=== PATIENT | male | born 1945 | race Caucasian/White ===

== ENCOUNTER → 2019-03-27 15:26 | Outpatient (CLI) | payer MEDICARE, SELFPAY ==
[2019-03-27 14:44] VITALS: BMI 22.6
[2019-03-27 16:28] LABS: BUN 25 mg/dL (7-18); EST Glomerular Filtration Rate 63 mL/min (>60); Est Glom Filt Rate - Afr Amer 76 mL/min (>60)
[2019-03-27 16:30] LABS: Hemoglobin A1c 7.1 % (4.2-6.3)
== END ==
PROVIDERS: Family Provider Family Medicine; PCP Family Medicine; Referring Provider Surgery; Visit Provider Surgery
DX: E11.9 Type 2 diabetes mellitus without complications (principal)
CPT/HCPCS: 36415; 82565; 83036; 84520

== ENCOUNTER → 2019-03-29 15:45 | Outpatient (CLI) | payer MEDICARE, SELFPAY ==
[2019-03-27 14:44] VITALS: BMI 22.6
--- NOTE | 2019-03-29 15:48 | CT_ITS ---
STUDY: CTA NECK WITH CONTRAST REASON FOR EXAM: Male, 73 years old. Carotid stenosis RADIATION DOSAGE (If Supplied By Facility): CTDIvol = ( 21.77 ) mGy, DLP = ( 622.78 ) mGycm TECHNIQUE: CT angiography with multi-detector data acquisition was performed from the aortic arch to the skull base following intravenous administration of IV Isovue 370 100. MIP images were reconstructed from the axial data set. Post-processing of the angiographic images was performed, with multiplanar reformation and 3D reconstruction. Individualized dose optimization techniques were used for this CT. COMPARISON: None. FINDINGS: AORTIC ARCH: Normal visualized aortic arch. Normal origins of the brachiocephalic, left common carotid, and left subclavian arteries. RIGHT CAROTID ARTERIES: Mild calcific plaquing of the distal right common carotid. Moderate calcific plaquing of the right carotid bulb.. Moderate to severe soft and calcific plaquing in the origin of the right internal carotid (ICA) artery demonstrating hemodynamically significant stenosis. Moderate soft plaque in the visualized cervical portion of the right internal carotid artery. Normal origin of the right external carotid artery (ECA). LEFT CAROTID ARTERIES: There is mild multifocal calcific plaquing of the common carotid. There is moderate calcific and soft plaque of the carotid bulb.. Mild calcific and soft plaque in the origin of the left internal carotid (ICA) artery without a hemodynamically significant stenosis. Normal visualized cervical portion of the left internal carotid artery. Normal origin of the left external carotid artery (ECA). VERTEBRAL ARTERIES: The left vertebral is dominant and normal caliber. The right vertebral is smaller and terminates in the PICA is normal developmental variant CT/CTA Neck W/WO Contrast IMPRESSION: Moderate atherosclerotic disease more severe on the right with estimated greater than 70% stenosis of the right internal carotid Catheter angiography would be helpful for further evaluation and possible therapeutic purposes if clinically warranted Electronically Signed: Hermes Castro MD at 19:54 EST , Service support ,
== END ==
PROVIDERS: Family Provider Family Medicine; PCP Family Medicine; Referring Provider Surgery; Visit Provider Surgery
DX: I65.23 Occlusion and stenosis of bilateral carotid arteries (principal)
CPT/HCPCS: 70498; Q9967

== ENCOUNTER → 2019-06-03 08:49 | Outpatient (CLI) | payer MEDICARE, SELFPAY ==
[2019-05-21 08:44] VITALS: BMI 22.6
[2019-06-03 09:46] VITALS: PULSE 100; PULSE 111; PULSE 119; PULSE 120; PULSE 121; PULSE 122; PULSE 124; O2SAT 87; O2SAT 90; O2SAT 93; O2SAT 95; O2SAT 96; O2SAT 97; O2SAT 98
--- NOTE | 2019-06-03 09:49 | CPS ---
Patient stated that he does have a concentrator at home but has not worn oxygen in over a year. Patient moved from [place] to [place], during that time patient gave back all oxygen tanks. Patient states he only gets short of breath in the winter and that his nasal polyps cause hjm to mouth breath and that is why his oxygen drops. Patient was also upset that he has to come here from [place] for testing, if he would have known all this he would have never came to [facility]. Patient sent home without face to face with Johana because he was seen in office within last 30 days. Patient sent home without oxygen due to wanting to know cost of everything before set up because he is on social security income. Johana holland and Kim at [facility] sending orders to [facility] [place].
--- NOTE | 2019-06-04 08:05 | PCM.PSN.6M ---
PSN 6 Minute Walk Test - 6 Minute Walk Test 6 Minute Walk Test: 6 Minute Walk Test PSN:6-Minute Walk Test Start: 06/03/19 09:46 Freq: Status: Active Protocol: RESP.6MINW Document 06/03/19 09:46 SMB (Rec: 06/03/19 09:55 SMB [id number]) 6 Minute Walk Test Date Performed 06/03/19 Time Performed 08:51 Height 5 ft 11 in Weight: 190 lb Weight in Pounds 190.[address]: Good Doss Assistive device used: None Pre-test Oxygen Delivery Method Room Air Pulse Ox (%) 96 Pulse Rate (60-100 beats/min) 111 H 1st minute Oxygen Delivery Method Room Air Pulse Ox (%) 96 Pulse Rate (60-100 beats/min) 119 H 2nd minute Oxygen Delivery Method Room Air Pulse Ox (%) 93 Pulse Rate (60-100 beats/min) 124 H 3rd minute Oxygen Delivery Method Room Air Pulse Ox (%) 90 Pulse Rate (60-100 beats/min) 122 H 4th minute Oxygen Flow Rate (L/min) (L/min) 2 Oxygen Delivery Method Nasal Cannula Pulse Ox (%) 87 Pulse Rate (60-100 beats/min) 121 H 5th minute Oxygen Flow Rate (L/min) (L/min) 2 Oxygen Delivery Method Nasal Cannula Pulse Ox (%) 97 Pulse Rate (60-100 beats/min) 120 H 6th minute Oxygen Flow Rate (L/min) (L/min) 2 Oxygen Delivery Method Nasal Cannula Pulse Ox (%) 95 Pulse Rate (60-100 beats/min) 100 Post-test Oxygen Flow Rate (L/min) (L/min) 2 Oxygen Delivery Method Nasal Cannula Pulse Ox (%) 98 Pulse Rate (60-100 beats/min) 119 H Dyspnea Nannette Scale (0-10) 1 Exertion Nannette Scale (6-20) 14 Full Laps Walked 12 Partial Lap, Number of Tiles Walked 13 Total Distance Walked (ft) 721 06/03/19 09:49 Cardiopulmonary Services by Areli Em Patient stated that he does have a concentrator at home but has not worn oxygen in over a year. Patient moved from [place] to [place], during that time patient gave back all oxygen tanks. Patient states he only gets short of breath in the winter and that his nasal polyps cause hjm to mouth breath and that is why his oxygen drops. Patient was also upset that he has to come here from [place] for testing, if he would have known all this he would have never came to [facility]. Patient sent home without face to face with Johana because he was seen in office within last 30 days. Patient sent home without oxygen due to wanting to know cost of everything before set up because he is on social security income. Johana holland and Kim at [facility] sending orders to [facility] [place] [place]. Initialized on 06/03/19 09:49 - END OF NOTE - Interpretation Interpretation: The patient ambulated 721 feet over the course of 6 minutes beginning on room air without assistive devices or breaks. Pretesting oxygen saturation was noted to be 96% on room air. With ambulation, the roya oxygen saturation was 87%. 2 L/min of supplemental oxygen was applied and the patient was able to complete the remainder of the test while maintaining appropriate oxygen saturations. The patient did develop physiologic tachycardia with exertion. - Recommendations Recommendations: 2 L/min of supplemental oxygen should be utilized with exertion.
== END ==
PROVIDERS: Family Provider Family Medicine; PCP Family Medicine; Referring Provider Internal Medicine Critical Care Medicine; Visit Provider Internal Medicine Critical Care Medicine
DX: J44.9 Chronic obstructive pulmonary disease, unspecified (principal)
CPT/HCPCS: 94618

== ENCOUNTER → 2019-06-11 09:13 | Outpatient (CLI) | payer MEDICARE, SELFPAY ==
[2019-05-21 08:44] VITALS: BMI 22.6
--- NOTE | 2019-06-11 16:16 | PFTCOMP_ITS ---
COMPLETE PULMONARY FUNCTION TEST INTERPRETATION Brief HPI: Patient is a 73 year old male, currently under the care of myself, who presents to [facility] for complete pulmonary function tests secondary to diagnosis of COPD. Respiratory therapist reports good effort and reproducible results. Interpretation: Forced expiration spirometry shows a very severe large airways obstructive ventilatory defect with an FEV1 of 30% predicted. There is no significant bronchodilator response by strict ATS criteria. Spirograms are of good quality and plateau slowly, indicating slowly emptying areas of the lungs. The respiratory flow volume loop shows decreased expiratory flow rates at all lung volumes consistent with airway obstruction. Lung volumes by body plethysmography show a decreased total lung capacity at 4.25 L, 64% predicted. All other lung volumes are reduced symmetrically. Diffusion capacity by carbon monoxide is decreased at 42% predicted. The airway resistance is elevated. No previous pulmonary function tests were available for review. Impression: Irreversible very severe mixed ventilatory defect with a symmetric reduction in diffusing capacity
== END ==
PROVIDERS: Family Provider Family Medicine; PCP Family Medicine; Referring Provider Internal Medicine Critical Care Medicine; Visit Provider Internal Medicine Critical Care Medicine
DX: J44.9 Chronic obstructive pulmonary disease, unspecified (principal)
CPT/HCPCS: 94060; 94726; 94729